=== PATIENT | male | born 1950 | race Caucasian/White ===

== ENCOUNTER → 2018-02-24 | Outpatient (CLI) | payer MEDICARE, OTHER | LOC: M WUC 16:20 | DX: R05 Cough (principal) | CPT/HCPCS: 71046 ==

== ENCOUNTER 2018-10-03 13:10 | Emergency (ER) | payer MEDICARE, OTHER ==
[2018-10-03] MEDS ORDERED: INDA125TA OR (13:39)
[2018-10-03] MEDS ORDERED: ATOR1TAB21 OR (13:39)
[2018-10-03] MEDS ORDERED: VITA100066 PO (13:39)
[2018-10-03] MEDS ORDERED: DUTA1CAP OR (13:39)
[2018-10-03] MEDS ORDERED: FISH120016 PO (13:39)
[2018-10-03] MEDS ORDERED: AMLO5TAB4 OR (13:39)
[2018-10-03] MEDS ORDERED: XALA0.007 OP (13:39)
--- NOTE | 2018-10-03 14:16 | REP ---
Clinical: Trauma. Technique: Axial noncontrast images from T11 through mid sacrum with coronal and sagittal re-formations. Findings: Evidence for prior posterior fusion with bilateral Villa rods and fixation screws extending from L1 through L5 with significant chronic hypertrophic facet changes causing multilevel posterior fusion as well as bridging anterior osteophytes. The vertebral bodies demonstrate relatively normal alignment. Underlying osteopenia and degenerative changes are noted. Spinal canal is relatively patent and without evidence for acute stenosis. There is no evidence for acute vertebral body fracture / compression injury or subluxation. There appears to be a horizontal fracture line through the bilateral inferior articular processes of T12 and the associated heterotopic posterior ossification without malalignment (best identified on sagittal re-formations 21-29). Impression: Significant degenerative changes and postsurgical changes with Villa rods from L1-L5 as described above. No prior examinations are available for comparison. 2. There is no evidence for significant lumbar vertebral body fracture / compression injury or subluxation. 3. There appears to be a subtle linear fracture line through the inferior articular processes of T12 and the associated bridging heterotopic bone formation without disturbance of alignment. This is of indeterminate age. Electronically Signed by Jacob Mayers MD 10/03/2018 02:07 P
--- NOTE | 2018-10-03 14:21 | REP ---
Clinical: Trauma. Technique: Axial noncontrast images from the skull base to the thoracic inlet with coronal and sagittal re-formations. Findings: Advanced osteopenia and degenerative disc osteophyte complexes are appreciated throughout the cervical spine including bridging osteophytes and fusion of the posterior elements. No obvious acute fracture / compression injury or subluxation is appreciated. Alignment is maintained. The spinal canal is patent. A subtle linear horizontal fracture line coursing through the posterior fused articulating facets at the C3-4 level cannot be excluded but maintains normal alignment and appears stable (best identified on sagittal re-formations) . Impression: Advanced multilevel degenerative changes with bridging anterior osteophytes and heterotopic fusion through the posterior elements. A subtle nondisplaced fracture line through the posterior articulating processes and heterotopic bone formation at the C3-4 level cannot be excluded and is without malalignment and appears stable. Electronically Signed by Jacob Mayers MD 10/03/2018 02:12 P
[2018-10-03] MEDS ORDERED: ONDANSETRON 4MG/2ML VIAL (J2405) IV ONE (15:00)
[2018-10-03] MEDS: MORPHINE 4 MG/ML 1ML VIAL/SYRINGE (J2270) IV PRN ×2 (15:02→18:03)
[2018-10-03] MEDS ORDERED: MORPHINE 4 MG/ML 1ML VIAL/SYRINGE (J2270) As Ordered ONE (19:14)
[2018-10-03] MEDS ORDERED: MORPHINE 4 MG/ML 1ML VIAL/SYRINGE (J2270) IV ONE (19:15)
[2018-10-03 19:19] VITALS: BP 132/69
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
== END 2018-10-03 19:30 | disposition short-term general hospital (02) ==
LOC: M ED 13:10
DX: S12.9XXA Fracture of neck, unspecified, initial encounter (principal); S22.089A Unspecified fracture of T11-T12 vertebra, initial encounter for closed fracture; W00.9XXA Unspecified fall due to ice and snow, initial encounter; Y92.410 Unspecified street and highway as the place of occurrence of the external cause
CPT/HCPCS: 72125; 72131; 96374; 96375; 96376; 99285; J2270; J2405

== ENCOUNTER → 2021-08-05 | Outpatient (REF) | payer MEDICARE, OTHER ==
[~2021-08-05] MED LIST: AMLO1TAB24 OR; ATOR1TAB21 OR; DUTA1CAP2 OR; FISH120016 PO; INDA125TA OR; VITA100066 PO; XALA0.007 OP
[2021-08-06 15:08] LABS: Lyme Disease IgG/IgM Antibodie <0.91 ISR (0.00-0.90); Lyme Disease IgM Ab Quantitati <0.80 index (0.00-0.79)
== END ==
LOC: M LAB REF 11:17
PROVIDERS: ATTEND Internal Medicine
DX: M25.50 Pain in unspecified joint (principal)

== ENCOUNTER → 2024-07-13 | Outpatient (REF) | payer MEDICARE, OTHER ==
[~2024-07-13] MED LIST changes: +INDA1.253 OR; -INDA125TA OR
== END ==
LOC: M SFHCDERM 13:32
PROVIDERS: ATTEND Nurse Practitioner Family
DX: L82.0 Inflamed seborrheic keratosis (principal)

== ENCOUNTER → 2024-09-18 | Outpatient (REF) | payer MEDICARE, OTHER ==
[2024-09-18 12:12] LABS: INR 1.1; PROTHROMBIN TIME 14.5 SECONDS (12.5-14.5)
== END ==
LOC: M LAB REF 11:49
PROVIDERS: ATTEND Internal Medicine
DX: Z01.812 Encounter for preprocedural laboratory examination (principal); M17.11 Unilateral primary osteoarthritis, right knee

== ENCOUNTER → 2024-10-23 | Outpatient (CLI) | payer MEDICARE, OTHER | LOC: M RAD 09:11 | PROVIDERS: ATTEND Internal Medicine | DX: M17.11 Unilateral primary osteoarthritis, right knee (principal); M79.661 Pain in right lower leg ==